=== PATIENT | female | born 1950 | race Caucasian/White ===

== ENCOUNTER 2017-12-24 10:29 | Outpatient (CLI) | payer MEDICARE | END 2017-12-24 10:30 | disposition home or self-care (01) | LOC: BICMAMMO 10:29 | PROVIDERS: ATTEND Obstetrics & Gynecology | DX: Z12.31 Encounter for screening mammogram for malignant neoplasm of breast (principal); R92.1 Mammographic calcification found on diagnostic imaging of breast; Z80.3 Family history of malignant neoplasm of breast | CPT/HCPCS: 77063; 77065; 77067; G0279 ==

== ENCOUNTER → 2018-01-04 | Day surgery (SDC) | payer MEDICARE ==
--- NOTE | 2018-01-04 09:11 | MMO ---
STEREOTACTIC GUIDED BIOPSY RIGHT BREAST MICROCALCIFICATIONS SURGICAL SPECIMEN MAMMOGRAPHY RIGHT DIAGNOSTIC MAMMOGRAM POST BIOPSY: Date: 01/04/18 HISTORY: After explaining the procedure and answering all questions, the microcalcification cluster deep withi n the central aspect of the right breast was visualized. Sterile technique, buffered local anesthesia , stereotactic guidance, and a superior approach were used to carefully advance a 12 gauge vacuum-ass isted needle to the level of the microcalcifications. Position was confirmed with stereotactic imagin g. A total of six vacuum-assisted samples were obtained. Localization clip was placed in the biopsy b ed under stereotactic guidance. Surgical specimen mammography shows small calcifications in the sample. Needle was removed. Hemostasi s obtained using direct pressure. The patient tolerated the procedure well and was eventually dischar ged in good condition. Postprocedure diagnostic mammogram shows scattered fibroglandular densities. Localization clip is now within the posterior central aspect of the breast where microcalcifications have been removed. Small pockets of gas are also visible. IMPRESSION: Technically successful stereotactic guided biopsy right breast micro-calcifications. Pathology is anne marie wyman. POS: [facility]
== END ==
LOC: MAMMO 06:51
PROVIDERS: ATTEND Obstetrics & Gynecology
PROC: 0HBT3ZX Excision of Right Breast, Percutaneous Approach, Diagnostic (ICD-10-PCS; principal; 2018-01-04)
DX: D24.1 Benign neoplasm of right breast (principal)
CPT/HCPCS: 19081; 76098; 88305